=== PATIENT | male | born 1980 | race African-American/Black ===

== ENCOUNTER 2017-02-15 12:29 | Emergency (ER) | payer OTHER ==
[~2017-02-15] VITALS: Ht 182.9 cm; Wt 81.7 kg
[2017-02-15] MEDS ORDERED: CELEXA20 MG PO (14:14)
[2017-02-15 14:41] VITALS: BP 141/72
== END 2017-02-15 14:42 | disposition home or self-care (01) ==
LOC: EME 12:29
DX: Z76.0 Encounter for issue of repeat prescription (principal); F32.9 Major depressive disorder, single episode, unspecified; R45.4 Irritability and anger; F17.200 Nicotine dependence, unspecified, uncomplicated
CPT/HCPCS: 99281; 99283